=== PATIENT | female | born 1995 | race Caucasian/White ===

== ENCOUNTER 2019-02-04 13:18 | Emergency (ER) | payer OTHER ==
--- NOTE | 2019-02-04 13:59 | ER Document Report ---
ED Medical Screen (RME) - General Chief Complaint: Gas Exposure Stated Complaint: WEAKNESS Time Seen by Provider: 02/04/19 13:56 Information source: Patient Notes: Patient reports being exposed to a gas leak while at work today. Patient is 9 weeks and reports seeing spots feeling dizzy and having chest heaviness. I have greeted and performed a rapid initial assessment of this patient. A comprehensive ED assessment and evaluation of the patient, analysis of test results and completion of the medical decision making process will be conducted by additional ED providers. - Related Data Allergies/Adverse Reactions: No Known Allergies Allergy (Verified 02/04/19 13:26) Physical Exam - Vital signs Vitals: Temp Pulse Resp BP Pulse Ox 99.4 F 81 16 108/75 96 02/04/19 13:24 02/04/19 13:24 02/04/19 13:24 02/04/19 13:24 02/04/19 13:24 - Respiratory Respiratory status: No respiratory distress Breath sounds: Normal Course - Vital Signs Vital signs: Temp Pulse Resp BP Pulse Ox 99.4 F 81 16 108/75 96 02/04/19 13:24 02/04/19 13:24 02/04/19 13:24 02/04/19 13:24 02/04/19 13:24
[2019-02-04 16:01] LABS: ARTERIAL BLOOD H2CO3 0.91 mmol/L (1.05-1.35); ARTERIAL BLOOD HCO3 20.1 mmol/L (20-24); ARTERIAL BLOOD O2 SATURATION 98.5 % (94-98); ARTERIAL BLOOD PCO2 30.2 mmHg (35-45); ARTERIAL BLOOD PH 7.44 (7.35-7.45); ARTERIAL BLOOD PO2 117.9 mmHg (80-100)
[2019-02-04 16:02] LABS: ARTERIAL BLOOD FIO2 ROOM AIR
[2019-02-04 16:09] LABS: APPEARANCE,URINE SLIGHTLY-CLOUDY; BILIRUBIN,URINE NEGATIVE (NEGATIVE); COLOR,URINE YELLOW; GLUCOSE, URINE NEGATIVE (NEGATIVE); KETONES,URINE TRACE mg/dL (NEGATIVE); LEUKOCYTE ESTERASE,URINE NEGATIVE (NEGATIVE); NITRITE,URINE NEGATIVE (NEGATIVE); PROTEIN,URINE NEGATIVE (NEGATIVE); URINE SPECIFIC GRAVITY 1.027
[2019-02-04 16:10] LABS: ABSOLUTE EOSINOPHILS # (AUTO) 0.1 10^3/uL (0.0-0.6); ABSOLUTE LYMPHOCYTES (AUTO) 1.2 10^3/uL (0.5-4.7); ABSOLUTE MONOCYTES (AUTO) 0.6 10^3/uL (0.1-1.4); ABSOLUTE NEUT (AUTO) 7.1 10^3/uL (1.7-8.2); BASOPHILS % (AUTO) 0.4 % (0-2); EOSINOPHILS % (AUTO) 0.9 % (0-6); HEMATOCRIT 37.1 % (36.0-47.0); HEMOGLOBIN 12.4 g/dL (12.0-15.5); LYMPHOCYTES % (AUTO) 13.2 % (13-45); MEAN CORPUSCULAR HEMOGLOBIN 30.4 pg (27.0-33.4); MEAN CORPUSCULAR HGB CONC 33.5 g/dL (32.0-36.0); MEAN CORPUSCULAR VOLUME 91 fl (80-97); MONOCYTES % (AUTO) 6.8 % (3-13); PLATELET COUNT 257 10^3/uL (150-450); RED BLOOD COUNT 4.08 10^6/uL (3.72-5.28); SEGMENTED NEUTROPHILS % (AUTO) 78.7 % (42-78); TOTAL CELLS COUNTED % (AUTO) 100 %
[2019-02-04 16:19] LABS: ANION GAP 12 (5-19); BLOOD UREA NITROGEN 11 mg/dL (7-20); CALCIUM 9.9 mg/dL (8.4-10.2); CARBON DIOXIDE 23 mmol/L (22-30); CHLORIDE 101 mmol/L (98-107); GLUCOSE 81 mg/dL (75-110); POTASSIUM 4.1 mmol/L (3.6-5.0)
--- NOTE | 2019-02-04 17:55 | ER Document Report ---
ED Burn/Smoke/Toxic Fumes - General Chief Complaint: Gas Exposure Stated Complaint: WEAKNESS Time Seen by Provider: 02/04/19 13:56 Primary Care Provider: DONNY HARRIS MD [Primary Care Provider] - Follow up as needed Notes: Patient is a 23-year-old female currently 9 weeks presents to the emergency department after a propane gas exposure. States she got to work around 1115 and at 1230 a room and was evacuated for a exposure to propane gas. States she was feeling lightheaded and dizzy. Also some generalized chest heaviness. Patient's denying any loss of consciousness or trauma. Initial orders placed by RME provider. Upon my assessment patient is denying all complaints, she is eating chips in no apparent distress. Patient states she feels "fine now." TRAVEL OUTSIDE OF THE [place] IN LAST 30 DAYS: No - Related Data Allergies/Adverse Reactions: No Known Allergies Allergy (Verified 02/04/19 13:26) Past Medical History - General Information source: Patient - Social History Smoking Status: Former Smoker Family History: Reviewed & Not Pertinent Patient has suicidal ideation: No Patient has homicidal ideation: No Review of Systems - Review of Systems Constitutional: denies: Fever EENT: No symptoms reported Cardiovascular: See HPI Respiratory: No symptoms reported Gastrointestinal: No symptoms reported Genitourinary: No symptoms reported Female Genitourinary: See HPI Musculoskeletal: No symptoms reported Skin: No symptoms reported Hematologic/Lymphatic: No symptoms reported Neurological/Psychological: See HPI Physical Exam - Vital signs Vitals: Temp Pulse Resp BP Pulse Ox 99.4 F 81 16 108/75 96 02/04/19 13:24 02/04/19 13:24 02/04/19 13:24 02/04/19 13:24 02/04/19 13:24 - Notes Notes: GENERAL: Alert, interacts well. No acute distress. HEAD: Normocephalic, atraumatic. EYES: Pupils equal, round, and reactive to light. Extraocular movements intact. ENT: Oral mucosa moist, tongue midline. NECK: Full range of motion. Supple. Trachea midline. LUNGS: Clear to auscultation bilaterally, no wheezes, rales, or rhonchi. No respiratory distress. HEART: Regular rate and rhythm. No murmur ABDOMEN: Soft, non-tender. Non-distended. Bowel sounds present in all 4 quadrants. EXTREMITIES: Moves all 4 extremities spontaneously. No edema, normal radial and dorsalis pedis pulses bilaterally. No cyanosis. 5 out of 5 strength noted all 4 extremities. BACK: no cervical, thoracic, lumbar midline tenderness. No saddle anesthesia, normal distal neurovascular exam. NEUROLOGICAL: Alert and oriented x3. Normal speech. cranial nerves II through XII grossly intact PSYCH: Normal affect, normal mood. SKIN: Warm, dry, normal turgor. No rashes or lesions noted. Course - Re-evaluation Re-evalutation: Patient wishes to refuse chest x-ray placed by [facility] provider if she is . 02/04/19 17:54 I have spoken with Shaniqua at poison control case #[id number] She is recommending O2 if needed, supportive care. Discussed following up with OBGYN in the next 24 hours. Pt. currently denying all complaints. Stable for D/C. - Vital Signs Vital signs: Temp Pulse Resp BP Pulse Ox 99.4 F 81 16 108/75 96 02/04/19 13:24 02/04/19 13:24 02/04/19 13:24 02/04/19 13:24 02/04/19 13:24 - Laboratory Result Diagrams: 02/04/19 15:49 02/04/19 15:49 Laboratory results interpreted by me: 02/04/19 02/04/19 02/04/19 15:49 15:49 15:49 Seg Neutrophils % 78.7 H Carbonic Acid 0.91 L ABG pCO2 30.2 L ABG pO2 117.9 H ABG O2 Saturation 98.5 H Sodium 136.1 L Urine Ketones Urine Urobilinogen 02/04/19 15:49 Seg Neutrophils % Carbonic Acid ABG pCO2 ABG pO2 ABG O2 Saturation Sodium Urine Ketones TRACE H Urine Urobilinogen 4.0 H Discharge - Discharge Clinical Impression: Dizziness Exposure to toxic gas Qualifiers: Encounter type: initial encounter Injury intent: accidental or unintentional Qualified Code(s): T59.91XA - Toxic effect of unspecified gases, fumes and vapors, accidental (unintentional), initial encounter Condition: Stable Disposition: HOME, SELF-CARE Additional Instructions: As we discussed you have been seen and treated in the emergency department for an exposure to propane. I have spoken with poison control. They state you should follow-up with your [facility] in the next 24 to 48 hours. Otherwise your lab evaluation in the emergency department was unremarkable. Please return to the emergency room should you have any concerns. Forms: Return to Work Referrals: DONNY HARRIS MD [Primary Care Provider] - Follow up as needed
[2019-02-04 18:34] VITALS: BP 106/61
== END 2019-02-04 18:34 | disposition home or self-care (01) ==
LOC: ER 13:18
DX: T59.91XA Toxic effect of unspecified gases, fumes and vapors, accidental (unintentional), initial encounter (principal); R42 Dizziness and giddiness; R53.1 Weakness; R07.9 Chest pain, unspecified; Z87.891 Personal history of nicotine dependence
CPT/HCPCS: 36415; 80048; 81001; 82803; 85025; 99283